=== PATIENT | male | born 1945 | race Caucasian/White ===

== ENCOUNTER 2019-08-06 19:28 | Emergency (ER) | payer MEDICARE, BC ==
[2019-08-06 19:40] VITALS: PULSE 70
[2019-08-06] MEDS ORDERED: Aspirin 81 MG Tab.Chew ONE (19:41)
[2019-08-06] MEDS ORDERED: Nitroglycerin 0.4 MG Tab.SL ONE (19:41)
[2019-08-06] MEDS ORDERED: Sodium Chloride 0.9% 10 ML Syringe FLUSH PRN (19:43)
[2019-08-06] MEDS ORDERED: Aspirin 81 MG Tab.Chew PO ONE (19:44)
[2019-08-06] MEDS ORDERED: Nitroglycerin 0.4 MG Tab.SL SL ONE ×3 (19:44→20:48)
--- NOTE | 2019-08-06 19:45 | EDM.PDOC ---
ED HPI GENERAL MEDICAL PROBLEM - General Chief Complaint: Chest Pain Stated Complaint: WEAK, CHEST, Time Seen by Provider: 08/06/19 19:35 Source of Information: Reports: Patient, RN, RN Notes Reviewed History Limitations: Reports: No Limitations - History of Present Illness INITIAL COMMENTS - FREE TEXT/NARRATIVE: patient to ER with complaint of chest pain and back pain. patient states pain is between the shoulder blades in the back and feels very similar to when he had stents last time. Patient states he has had stents twice, once 22 years ago and again 5 years ago. Patient states he has a history of stomach cancer, currently on chemotherapy. Admits to hypertension, high cholesterol. Patient states he is to have open heart surgery at some point, but that has not been scheduled. Patient states the open-heart surgery is to be done at [facility] due to his high risk and chemotherapy. patient states he was exerting himself today, drilling holes in the ice for ice fishing. patient states he came to [facility] playing in a pool league, and became very weak and having the pain. Onset: Today, Sudden Duration: Constant, Getting Worse, Heavy Chest Pain Score (Numeric/FACES): 5 - Related Data Allergies Allergy/AdvReac Type Severity Reaction Status Date / Time ticlopidine HCl [From Ticlid] Allergy Rash Verified 08/06/19 19:34 Home Meds: Home Meds Enalapril Maleate 10 mg PO DAILY 12/22/13 [History] metFORMIN [Glucophage] 1,000 mg PO BID 12/22/13 [History] Aspirin [Halfprin] 81 mg PO DAILY 02/28/15 [History] Cholecalciferol (Vitamin D3) [Vitamin D-3] 5,000 unit PO DAILY 02/28/15 [History ] Metoprolol Tartrate [Lopressor] 25 mg PO BID 02/28/15 [History] Multivitamin with Minerals [Multiple Vitamin] 1 tab PO DAILY 02/28/15 [History] Nitroglycerin [Nitrostat] 0.4 mg SL ASDIRECTED PRN 02/28/15 [History] atorvaSTATin Calcium [Atorvastatin Calcium] 80 mg PO BEDTIME 02/28/15 [History] Insulin Detemir [Levemir Flextouch] 100 unit SQ ACBREAKFAST 05/29/18 [History] Magnesium 250 mg PO DAILY 02/01/19 [History] SitaGLIPtin [Januvia] 100 mg PO DAILY 02/01/19 [History] Past Medical History Other HEENT History: 2nd bloody nose within 2 weeks that will not stop Other Hematologic History: on plavix and baby asa. gives blood regular for 44 years. states he was a "[employer]" and received blood from his father at Social & Family History - Living Situation & Occupation Living situation: Reports: , with Spouse Occupation: Employed ED ROS GENERAL - Review of Systems Review Of Systems: Comprehensive ROS is negative, except as noted in HPI. ED EXAM, GENERAL - Physical Exam Exam: See Below Exam Limited By: No Limitations General Appearance: Alert, WD/WN, Moderate Distress Eye Exam: Bilateral Eye: EOMI, Normal Inspection Ears: Normal External Exam, Hearing Grossly Normal Nose: Normal Inspection Throat/Mouth: Normal Inspection, Normal Voice, No Airway Compromise Head: Atraumatic, Normocephalic Neck: Normal Inspection, Supple, Non-Tender, Full Range of Motion Respiratory/Chest: No Respiratory Distress, Lungs Clear, Normal Breath Sounds, No Accessory Muscle Use, Chest Non-Tender Cardiovascular: Normal Peripheral Pulses, Regular Rate, Rhythm, No Edema, No Gallop, No JVD, No Murmur, No Rub Peripheral Pulses: 2+: Radial (L), Radial (R) GI/Abdominal: Normal Bowel Sounds, Soft, Non-Tender, No Distention (Male) Exam: Deferred Rectal (Males) Exam: Deferred Back Exam: Normal Inspection, Full Range of Motion, NT Extremities: Normal Inspection, Normal Range of Motion, Non-Tender, Normal Capillary Refill, No Pedal Edema Neurological: Alert, Oriented, CN II-XII Intact, Normal Cognition, Normal Gait, Normal Reflexes, No Motor/Sensory Deficits Psychiatric: Anxious Skin Exam: Warm, Dry, Intact, Normal Color, No Rash Lymphatic: No Adenopathy Course - Vital Signs Last Recorded V/S: Last Vital Signs Temp 97.2 F 08/06/19 19:35 Pulse 70 08/06/19 19:35 Resp 18 08/06/19 19:35 BP 145/87 H 08/06/19 19:50 Pulse Ox 100 08/06/19 19:35 - Orders/Labs/Meds Orders: Active Orders 24 hr Category Date Time Status EKG Documentation Completion [RC] STAT Care 08/06/19 19:43 Active EKG Documentation Completion [RC] STAT Care 08/06/19 23:30 Active Peripheral IV Care [RC] . DIRECTED Care 08/06/19 19:44 Active Chest 1V Frontal [CR] Stat Exams 08/06/19 19:43 Taken TROPONIN I [CHEM] Stat Lab 08/06/19 23:30 Ordered Sodium Chloride 0.9% [Saline Flush] Med 08/06/19 19:43 Active 10 ml FLUSH ASDIRECTED PRN Peripheral IV Insertion Adult [OM.PC] Stat Oth 08/06/19 19:43 Ordered Medication Orders Sodium Chloride (Saline Flush) 10 ml FLUSH ASDIRECTED PRN PRN Reason: Keep Vein Open Last Admin: 08/06/19 20:24 Dose: 10 ml Labs: Laboratory Tests 08/06/19 08/06/19 08/06/19 Range/Units 19:36 19:36 19:36 WBC 4.6 L (5.0-10.0) 10^3/uL RBC 2.76 L (4.6-6.2) 10^6/uL Hgb 10.3 L (14.0-18.0) g/dL Hct 30.5 L (40.0-54.0) % MCV 110.5 H (80-100) fL MCH 37.3 H (27.0-34.0) pg MCHC 33.8 (33.0-35.0) g/dL Plt Count 203 (150-450) 10^3/uL Neut % (Auto) 58.4 (42.2-75.2) % Lymph % (Auto) 32.5 (20.5-50.1) % [place] % (Auto) 8.3 H (2-8) % Eos % (Auto) 0.4 L (1.0-3.0) % Baso % (Auto) 0.4 (0.0-1.0) % PT 10.7 (9.0-12.0) SEC INR 1.0 (0.9-1.2) Sodium 132 L (135-145) mmol/L Potassium 3.4 L (3.6-5.0) mmol/L Chloride 99 L (101-111) mmol/L Carbon Dioxide 21.0 (21.0-31.0) mmol/L Anion Gap 15.4 BUN 16 (7-18) mg/dL Creatinine 0.9 (0.6-1.3) mg/dL Est Cr Clr Drug Dosing 67.32 mL/min Estimated GFR (MDRD) > 60 BUN/Creatinine Ratio 17.77 Glucose 192 H (74-105) mg/dL Calcium 8.8 (8.4-10.2) mg/dl Total Bilirubin 1.0 (0.2-1.0) mg/dL AST 25 (10-42) IU/L ALT 17 (10-60) IU/L Alkaline Phosphatase 63 (42-121) IU/L Troponin I < 0.02 (0.00-0.02) ng/ml B-Natriuretic Peptide 90 (0-100) pg/ml Total Protein 7.1 (6.7-8.2) g/dl Albumin 3.6 (3.2-5.5) g/dl Globulin 3.5 Albumin/Globulin Ratio 1.03 Meds: Medications Generic Name Dose Route Start Last Admin Trade Name Freq PRN Reason Stop Dose Admin Sodium Chloride 10 ml 08/06/19 19:43 08/06/19 20:24 Saline Flush FLUSH 10 ml ASDIRECTED PRN Administration Keep Vein Open Discontinued Medications Generic Name Dose Route Start Last Admin Trade Name Freq PRN Reason Stop Dose Admin Aspirin Confirm 08/06/19 19:41 08/06/19 20:00 Aspirin Administered 08/06/19 19:42 Not Given Dose 324 mg .ROUTE .STK-MED ONE Aspirin 324 mg 08/06/19 19:44 08/06/19 19:45 Aspirin PO 08/06/19 19:45 324 mg ONETIME ONE Administration Fentanyl 100 mcg 08/06/19 20:56 Sublimaze IVPUSH 08/06/19 20:57 ONETIME ONE Fentanyl 50 mcg 08/06/19 20:59 Sublimaze IVPUSH 08/06/19 21:00 ONETIME ONE Nitroglycerin Confirm 08/06/19 19:41 08/06/19 19:43 Nitrostat Administered 08/06/19 19:42 0.4 mg Dose Administration 0.4 mg .ROUTE .STK-MED ONE Nitroglycerin 0.4 mg 08/06/19 19:44 08/06/19 19:50 Nitrostat SL 08/06/19 19:45 0.4 mg Q5M ONE Administration Nitroglycerin 0.4 mg 08/06/19 19:45 Nitrostat SL 08/06/19 19:46 Q5M ONE Nitroglycerin 0.4 mg 08/06/19 20:48 Nitrostat SL 08/06/19 20:49 Q5M ONE - Radiology Interpretation Free Text/Narrative:: Chest xray: FINDINGS: Tubes, catheters and devices: A left infusion port is present. Lungs: The lungs are normal. Pleural space: There are no pleural effusions present. Heart/Mediastinum: The heart is not enlarged. The pulmonary arteries are not enlarged. Bones/joints: The spine, ribs, and pectoral girdles are normal. IMPRESSION: No acute abnormality. Thank you for allowing us to participate in the care of your patient. Dictated and Authenticated by: Aaron Coyle MD 08/06/2019 8:33 PM Central Time ([place] & [place]) See rad report Departure - Departure Time of Disposition: 21:18 Disposition: Home, Self-Care 01 Reason for Transfer *Q: Other Condition: Fair Clinical Impression: Chest pain Qualifiers: Chest pain type: chest pain due to myocardial ischemia Ischemic chest pain type : unspecified angina pectoris type Qualified Code(s): I25.9 - Chronic ischemic heart disease, unspecified Forms: ED Department Discharge, Interfacility Transfer [facility] Sepsis Event Note - Evaluation Sepsis Screening Result: No Definite Risk - Focused Exam Vital Signs: Vital Signs Temp Pulse Resp BP BP Pulse Ox 08/06/19 19:50 145/87 H 08/06/19 19:43 145/87 H 08/06/19 19:35 97.2 F 70 18 176/91 H 100 Date Exam was Performed: 08/06/19 Time Exam was Performed: 21:15 - My Orders Last 24 Hours: My Active Orders 08/06/19 19:43 EKG Documentation Completion [RC] STAT Chest 1V Frontal [CR] Stat Sodium Chloride 0.9% [Saline Flush] 10 ml FLUSH ASDIRECTED PRN Peripheral IV Insertion Adult [OM.PC] Stat 08/06/19 19:44 Peripheral IV Care [RC] . DIRECTED 08/06/19 23:30 EKG Documentation Completion [RC] STAT TROPONIN I [CHEM] Stat - Assessment/Plan Last 24 Hours: My Active Orders 08/06/19 19:43 EKG Documentation Completion [RC] STAT Chest 1V Frontal [CR] Stat Sodium Chloride 0.9% [Saline Flush] 10 ml FLUSH ASDIRECTED PRN Peripheral IV Insertion Adult [OM.PC] Stat 08/06/19 19:44 Peripheral IV Care [RC] . DIRECTED 08/06/19 23:30 EKG Documentation Completion [RC] STAT TROPONIN I [CHEM] Stat
[2019-08-06 20:02] LABS: ANION GAP 15.4; CHLORIDE,CL 99 mmol/L (101-111); SODIUM,NA 132 mmol/L (135-145)
[2019-08-06] MEDS ORDERED: fentaNYL 100 MCG/2 ML SDV IVPUSH ONE ×2 (20:56→20:59)
[2019-08-06 21:18] VITALS: BP 128/80
== END 2019-08-06 21:40 | disposition home or self-care (01) ==
LOC: DL.ED 19:28
DX: I25.9 Chronic ischemic heart disease, unspecified (principal); I10 Essential (primary) hypertension; C16.9 Malignant neoplasm of stomach, unspecified; Z88.8 Allergy status to other drugs, medicaments and biological substances; Z79.899 Other long term (current) drug therapy; Z79.82 Long term (current) use of aspirin; Z79.4 Long term (current) use of insulin
CPT/HCPCS: 36415; 71045; 80053; 83880; 84484; 85025; 85610; 93005; 96374; 99285; A9270; J3010

== ENCOUNTER 2021-01-09 16:37 | Emergency (ER) | payer MEDICARE, BC ==
--- NOTE | 2021-01-09 17:22 | EDM.PDOC ---
ED HPI GENERAL MEDICAL PROBLEM <Francesca Caldera - Last Filed: 01/16/21 05:53> - General Source of Information: Reports: Patient, EMS, EMS Notes Reviewed, RN, RN Notes Reviewed History Limitations: Reports: No Limitations Generalized Pain Score (Numeric/FACES): 4 <Ivania Mathews - Last Filed: 01/20/21 16:44> - General Chief Complaint: Syncope Stated Complaint: AMBULANCE Time Seen by Provider: 01/09/21 16:39 - History of Present Illness INITIAL COMMENTS - FREE TEXT/NARRATIVE: Vinny is a 75 y/o male who presents to the ED via [facility] with complaints of fall onto head. The patient reports this incident occurred about 45 minutes prior to his arrival at this facility when he tripped on a wet sidewalk and fell onto his face. The patient denies loss of consciousness, but notes he does take aspirin daily. He denies vision changes, headache, chest pain, palpitations, shortness of breath, or abdominal pain. He does report dizziness and pain to his left palm and bilateral knees. The patient reports current treatment for colon cancer; his last chemotherapy was three days ago, along with Fulphila, for which he receives every two weeks. (Ivania Mathews) - Related Data Allergies Allergy/AdvReac Type Severity Reaction Status Date / Time No Known Allergies Allergy Verified 01/09/21 17:31 Home Meds: Home Meds Enalapril Maleate 10 mg PO DAILY 12/22/13 [History] metFORMIN [Glucophage] 1,000 mg PO BID 12/22/13 [History] Aspirin [Halfprin] 81 mg PO DAILY 02/28/15 [History] Cholecalciferol (Vitamin D3) [Vitamin D-3] 5,000 unit PO DAILY 02/28/15 [History] Metoprolol Tartrate [Lopressor] 25 mg PO BID 02/28/15 [History] Multivitamin with Minerals [Multiple Vitamin] 1 tab PO DAILY 02/28/15 [History] Nitroglycerin [Nitrostat] 0.4 mg SL ASDIRECTED PRN 02/28/15 [History] atorvaSTATin Calcium [Atorvastatin Calcium] 80 mg PO BEDTIME 02/28/15 [History] Insulin Detemir [Levemir Flextouch] 100 unit SQ ACBREAKFAST 05/29/18 [History] Magnesium 500 mg PO DAILY 02/01/19 [History] SitaGLIPtin [Januvia] 100 mg PO DAILY 02/01/19 [History] Clopidogrel [Plavix] 75 mg PO DAILY 08/30/19 [History] Past Medical History Other HEENT History: 2nd bloody nose within 2 weeks that will not stop Cardiovascular History: Reports: CAD, Stents Respiratory History: Reports: None Gastrointestinal History: Reports: None Genitourinary History: Reports: None Musculoskeletal History: Reports: None, Fracture Other Musculoskeletal History: collar bone Neurological History: Reports: None Psychiatric History: Reports: None Endocrine/Metabolic History: Reports: Diabetes, Type II Hematologic History: Reports: None Other Hematologic History: on plavix and baby asa. gives blood regular for 44 years. states he was a "[employer]" and received blood from his father at Immunologic History: Reports: None Oncologic (Cancer) History: Reports: Colon, Other (See Below) Other Oncologic History: stomach cancer Dermatologic History: Reports: None - Infectious Disease History Infectious Disease History: Reports: Chicken Pox, Shingles - Past Surgical History Head Surgeries/Procedures: Reports: None Cardiovascular Surgical History: Reports: None Respiratory Surgical History: Reports: None GI Surgical History: Reports: None Male Surgical History: Reports: None Endocrine Surgical History: Reports: None Neurological Surgical History: Reports: None Musculoskeletal Surgical History: Reports: None Dermatological Surgical History: Reports: None <AngiKeturah madsenberyuki Vincent - Last Filed: 01/20/21 16:44> Social & Family History - Family History Family Medical History: No Pertinent Family History - Caffeine Use Caffeine Use: Reports: Soda - Living Situation & Occupation Living situation: Reports: , with Spouse Occupation: Employed <ReidIvania Melisa - Last Filed: 01/20/21 16:44> ED ROS GENERAL - Review of Systems Review Of Systems: Comprehensive ROS is negative, except as noted in HPI. <Francesca Caldera - Last Filed: 01/16/21 05:53> - Review of Systems Review Of Systems: Comprehensive ROS is negative, except as noted in HPI. <Ivania Mathews Melisa - Last Filed: 01/20/21 16:44> ED EXAM, HEAD INJURY - Physical Exam Exam: See Below Exam Limited By: No Limitations General Appearance: Alert, No Apparent Distress Head: Normocephalic, Facial Lacerations (To left eyebrow), Facial Tenderness. No: Howard's Sign, Facial Ecchymosis, Facial Swelling, Raccoon Eyes Nexus Criteria: No: Posterior, Midline Cervical Tenderness, Evidence of Intoxication, Altered Level of Consciousness, Focal Neurological Deficit, Painful Distraction Injuries Eyes: Bilateral Eye: EOMI, Normal Inspection, PERRL (3mm) Ears: Normal External Exam, Normal Canal, Hearing Grossly Normal, Normal TMs Nose: Normal Inspection, Normal Mucousa, No Blood Throat/Mouth: Normal Inspection (Dry mucous membranes), Normal Lips, Normal Teeth, Normal Gums, Normal Voice, No Airway Compromise. No: Normal Oropharynx (Dry mucous membranes) Neck: Non-Tender, Full Range of Motion, Normal Alignment, Normal Inspection. No: Tenderness, Tender Lateral, Tender Midline Respiratory: No Respiratory Distress, Lungs Clear, Normal Breath Sounds, No Accessory Muscle Use, Chest Non-Tender Cardiovascular: Normal Peripheral Pulses, Regular Rate, Rhythm, No Edema, No Gallop, No JVD, No Murmur, No Rub GI/Abdominal Exam: Normal Bowel Sounds, Soft, Non-Tender, No Distention, No Abnormal Bruit, No Mass, Pelvis Stable (Male) Exam: Deferred Rectal (Males) Exam: Deferred Back Exam: Normal Inspection, Full Range of Motion Extremities: Normal Range of Motion, Normal Capillary Refill, Arm Pain (3cm laceration to left anterior palm). No: Increased Warmth, Mottled, Pallor, Redness Neurologic: information assoc II-XII nml As Tested, No Motor/Sensory Deficits, Alert, Normal Mood/Affect, Oriented x 3 Skin: Normal Color, Warm/Dry, Other (Laceration to left eyebrown and left anterior palm) - Aroda Coma Score Best Eye Response (Aroda): (4) Open Spontaneously Best Verbal Response (Aroda): (5) Oriented Best Motor Response (Monika): (6) Obeys Commands <Ivania Mathews - Last Filed: 01/20/21 16:44> ED LACERATION/WOUND & CABRERA PROC - Laceration/Wound Repair Left Anterior Hand Lac/wound length in cm: 3 Appearance: Subcutaneous, Linear, Clean Distal NVT: Neuro & Vascular Intact, No Tendon Injury Anesthetic Type: Local Local Anesthesia - Lidocaine (Xylocaine): 1% Plain Local Anesthetic Volume: 3cc Skin Prep: Chlorhexidine (Hibiciens), Sterile Drape Exploration/Debridement/Repair: Wound Explored, In a Bloodless Field, Explored to Base, No Foreign Material Found, Wound Margins Revised Closed with: Sutures Suture Size: 4-0 # of Sutures: 7 Suture Type: Prolene, Interrupted, Simple Drain Placement: No Sterile Dressing Applied: Nurse Tetanus Status Addressed: Yes Complications: No Left Upper Anterior Medial Brow Lac/wound length in cm: 2.5 Appearance: Subcutaneous, Linear, Clean Distal NVT: Neuro & Vascular Intact, No Tendon Injury Anesthetic Type: Local Local Anesthesia - Lidocaine (Xylocaine): 1% Plain Local Anesthetic Volume: 5cc Skin Prep: Chlorhexidine (Hibiciens), Saline, Sterile Drape Exploration/Debridement/Repair: Wound Explored, In a Bloodless Field, Explored to Base, No Foreign Material Found, Wound Margins Revised Closed with: Sutures Suture Size: 4-0 # of Sutures: 5 Suture Type: Prolene, Interrupted, Simple Drain Placement: No Sterile Dressing Applied: Nurse Tetanus Status Addressed: Yes Complications: No <ReidIvania Melisa - Last Filed: 01/20/21 16:44> #1 Interpretation EKG Date: 01/09/21 Time: 05:01 Rhythm: NSR Rate (Beats/Min): 68 [place]: Normal P-Wave: Present QRS: Normal ST-T: Normal QT: Normal NV/PQ Interval: 0.18 Comparison: No Change <ReidIvaniaelena Vincent - Last Filed: 01/20/21 16:44> #1 Interpretation EKG Interpretation Comments: NSR; old q-waves in II, III, and aVF; No evidence of acute myocardia ischemia (Ivania Mathews) Course <ReidIvania Melisa - Last Filed: 01/20/21 16:44> - Vital Signs Last Recorded V/S: Last Vital Signs Temp 96.3 F L 01/09/21 16:40 Pulse 66 01/09/21 16:40 Resp 18 01/09/21 16:40 BP 146/94 H 01/09/21 16:40 Pulse Ox 99 01/09/21 16:40 Orthostatic Blood Pressure [ 90/59 Standing] Orthostatic Blood Pressure [ 116/56 Sitting] Orthostatic Blood Pressure [ 146/94 Supine] - Orders/Labs/Meds Labs: Laboratory Tests 01/09/21 01/09/21 01/09/21 Range/Units 16:58 16:58 16:58 WBC 54.1 H* (5.0-10.0) 10^3/uL RBC 3.22 L (4.6-6.2) 10^6/uL Hgb 11.1 L (14.0-18.0) g/dL Hct 35.5 L (40.0-54.0) % MCV 110.2 H (80-100) fL MCH 34.5 H (27.0-34.0) pg MCHC 31.3 L (33.0-35.0) g/dL Plt Count 210 (150-450) 10^3/uL Neut % (Auto) 96.3 H (42.2-75.2) % Lymph % (Auto) 2.9 L (20.5-50.1) % [place] % (Auto) 0.7 L (2-8) % Eos % (Auto) 0.0 L (1.0-3.0) % Baso % (Auto) 0.1 (0.0-1.0) % Add Manual Diff Yes Neutrophils % (Manual) 76 H (42-75) % Band Neutrophils % 15 % Lymphocytes % (Manual) 8 L (20-50) % Monocytes % (Manual) 1 L (2-8) % Macrocytosis 3+ marked PT 10.6 (9.0-12.0) SEC INR 1.1 (0.9-1.2) APTT 20.0 L (22.0-34.0) SEC Sodium 142 (136-145) mmol/L Potassium 4.3 (3.5-5.1) mmol/L Chloride 104 (98-107) mmol/L Carbon Dioxide 24 (21-32) mmol/L Anion Gap 18.3 H (7-13) mEq/L BUN 26 H (7-18) mg/dL Creatinine 1.19 (0.70-1.30) mg/dL Est Cr Clr Drug Dosing TNP Estimated GFR (MDRD) 59 BUN/Creatinine Ratio 21.8 (No establ ref range) Glucose 153 H (70-99) mg/dL Lactic Acid (0.4-2.0) mmol/L Calcium 8.6 (8.5-10.1) mg/dL Magnesium 1.8 (1.8-2.4) mg/dL Total Bilirubin 0.7 (0.2-1.0) mg/dL AST 21 (15-37) U/L ALT 32 (16-63) U/L Alkaline Phosphatase 174 H (46-116) U/L Troponin I High Sens 14 (<=76) pg/mL C-Reactive Protein < 0.2 (0.0-0.9) mg/dL B-Natriuretic Peptide 186 H (0-100) pg/ml Total Protein 6.3 L (6.4-8.2) g/dL Albumin 3.2 L (3.4-5.0) g/dL Globulin 3.1 Albumin/Globulin Ratio 1.03 Ethyl Alcohol < 3 (0) mg/dL 01/09/ Range/Units 16:58 WBC (5.0-10.0) 10^3/uL RBC (4.6-6.2) 10^6/uL Hgb (14.0-18.0) g/dL Hct (40.0-54.0) % MCV (80-100) fL MCH (27.0-34.0) pg MCHC (33.0-35.0) g/dL Plt Count (150-450) 10^3/uL Neut % (Auto) (42.2-75.2) % Lymph % (Auto) (20.5-50.1) % [place] % (Auto) (2-8) % Eos % (Auto) (1.0-3.0) % Baso % (Auto) (0.0-1.0) % Add Manual Diff Neutrophils % (Manual) (42-75) % Band Neutrophils % % Lymphocytes % (Manual) (20-50) % Monocytes % (Manual) (2-8) % Macrocytosis PT (9.0-12.0) SEC INR (0.9-1.2) APTT (22.0-34.0) SEC Sodium (136-145) mmol/L Potassium (3.5-5.1) mmol/L Chloride (98-107) mmol/L Carbon Dioxide (21-32) mmol/L Anion Gap (7-13) mEq/L BUN (7-18) mg/dL Creatinine (0.70-1.30) mg/dL Est Cr Clr Drug Dosing Estimated GFR (MDRD) BUN/Creatinine Ratio (No establ ref range) Glucose (70-99) mg/dL Lactic Acid 4.1 H* (0.4-2.0) mmol/L Calcium (8.5-10.1) mg/dL Magnesium (1.8-2.4) mg/dL Total Bilirubin (0.2-1.0) mg/dL AST (15-37) U/L ALT (16-63) U/L Alkaline Phosphatase (46-116) U/L Troponin I High Sens (<=76) pg/mL C-Reactive Protein (0.0-0.9) mg/dL B-Natriuretic Peptide (0-100) pg/ml Total Protein (6.4-8.2) g/dL Albumin (3.4-5.0) g/dL Globulin Albumin/Globulin Ratio Ethyl Alcohol (0) mg/dL Meds: Medications Discontinued Medications Generic Name Dose Route Start Last Admin Trade Name Freq PRN Reason Stop Dose Admin Bacitracin 1 dose 01/09/21 19:10 01/09/21 19:27 Bacitracin Oint 1 Gm U/D Packet TOP 01/09/21 19:11 1 dose ONETIME ONE Administration Sodium Chloride 500 mls @ 999 mls/hr 01/09/21 18:48 01/09/21 19:02 Normal Saline IV 01/09/21 19:18 999 mls/hr .BOLUS ONE Administration Lidocaine HCl 30 ml 01/09/21 17:45 01/09/21 17:51 Lidocaine 1% 30 Ml Sdv INJECT 01/09/21 17:46 30 ml ONETIME ONE Administration - Radiology Interpretation Free Text/Narrative:: [facility] Final Radiology Report Call: [phone] assistance Online chat: [email or web address] Name: VINNY DYSON Age: 75Years M Date: 01/09/2021 SSN: -- : [id number] Study: CT HEAD WO CONT Requesting Physician: Ivania Mathews Images: 178 Addl Studies: Provided Clinical History: Fall off of sidewalk onto face; Blood thinners Contrast: Without Contrast Medium: Contrast Amount: Contrast Method: Page 1 of 2 PROCEDURE INFORMATION: Exam: CT Head Without Contrast Exam date and time: 01/09/2021 5:11 PM Age: 75 years old Clinical indication: Other: Fall; Additional info: Fall off of sidewalk onto face; Blood thinners TECHNIQUE: Imaging protocol: Computed tomography of the head without contrast. Radiation optimization: All CT scans at this facility use at least one of these dose optimization techniques: automated exposure control; mA and/or kV adjustment per patient size (includes targeted exams where dose is matched to clinical indication); or iterative reconstruction. COMPARISON: No relevant prior studies available. FINDINGS: Brain: Moderate generalized cortical atrophy. No hemorrhage. Mild the chronic white matter micro ischemic change. No mass effect. Cerebral ventricles: No ventriculomegaly. Paranasal sinuses: Mucoperiosteal thickening observed in the right maxillary sinus. In No fluid levels. Mastoid air cells: Visualized mastoid air cells are well aerated. Bones/joints: Unremarkable. No acute fracture. Soft tissues: Unremarkable. IMPRESSION: No acute intracranial abnormality. Thank you for allowing us to participate in the care of your patient. Dictated and Authenticated by: Aleks Hart MD 01/09/2021 5:33 PM Central Time ([place] & [place]) (Ivania Mathews) - Re-Assessments/Exams Free Text/Narrative Re-Assessment/Exam: 01/09/21 Laceration to left eyebrow and left palm sutured without complication. Patient verbalized TDap vaccine in the past 10 years. Care of patient transferred to [facility] at 1900. (Ivania Mathews) Departure - Departure Time of Disposition: 19:38 <Francesca Caldera - Last Filed: 01/16/21 05:53> - Departure Condition: Good - Discharge Information *PRESCRIPTION DRUG MONITORING PROGRAM REVIEWED*: Not Applicable *COPY OF PRESCRIPTION DRUG MONITORING REPORT IN PATIENT RAGHAV: Not Applicable <Ivania Mathews - Last Filed: 01/20/21 16:44> - Departure Disposition: Home, Self-Care 01 Clinical Impression: Elevated lactic acid level, History of colon cancer, Fall from ground level, Effect of chemotherapy Head trauma Qualifiers: Encounter type: initial encounter Qualified Code(s): S09.90XA - Unspecified injury of head, initial encounter Laceration of left eyebrow Qualifiers: Encounter type: initial encounter Qualified Code(s): S01.112A - Laceration without foreign body of left eyelid and periocular area, initial encounter Laceration of left palm without complication Qualifiers: Encounter type: initial encounter Qualified Code(s): S61.412A - Laceration without foreign body of left hand, initial encounter Elevated white blood cell count Qualifiers: Leukocytosis type: other Qualified Code(s): D72.828 - Other elevated white blood cell count - Discharge Information Instructions: Facial Laceration, [id number] Referrals: PCP,None [Primary Care Provider] - Forms: ED Department Discharge Additional Instructions: 1.) Follow up with primary care provider in 5-7 days for suture removal. 2.) Continue with current medication regimen. 3.) Drink plenty of water to stay hydrated. 4.) Follow up with primary care provider, or return to the emergency department, with any vision changes, projectile vomiting, decrease in mental status, seizure-like activity, shortness of breath, or chest palpitations.
[2021-01-09 17:27] LABS: ANION GAP 18.3 mEq/L (7-13); CHLORIDE,CL 104 mmol/L (98-107); SODIUM,NA 142 mmol/L (136-145)
--- NOTE | 2021-01-09 17:34 | CT ---
PROCEDURE INFORMATION: Exam: CT Head Without Contrast Exam date and time: 01/09/2021 5:11 PM Age: 75 years old Clinical indication: Other: Fall; Additional info: Fall off of sidewalk onto face; Blood thinners TECHNIQUE: Imaging protocol: Computed tomography of the head without contrast. Radiation optimization: All CT scans at this facility use at least one of these dose optimization techniques: automated exposure control; mA and/or kV adjustment per patient size (includes targeted exams where dose is matched to clinical indication); or iterative reconstruction. COMPARISON: No relevant prior studies available. FINDINGS: Brain: Moderate generalized cortical atrophy. No hemorrhage. Mild the chronic white matter micro ischemic change. No mass effect. Cerebral ventricles: No ventriculomegaly. Paranasal sinuses: Mucoperiosteal thickening observed in the right maxillary sinus. In No fluid levels. Mastoid air cells: Visualized mastoid air cells are well aerated. Bones/joints: Unremarkable. No acute fracture. Soft tissues: Unremarkable. IMPRESSION: No acute intracranial abnormality.
[2021-01-09 17:38] VITALS: BP 146/94; PULSE 66
[2021-01-09] MEDS ORDERED: Lidocaine 1% 30 ML SDV INJECT ONE (17:45)
[2021-01-09] MEDS ORDERED: Sodium Chloride 0.9% 500 ML IV ONE (18:48)
[2021-01-09] MEDS ORDERED: Bacitracin Oint 1 GM U/D Packet TOP ONE (19:10)
== END 2021-01-09 19:45 | disposition home or self-care (01) ==
LOC: DL.ED 16:37
DX: S01.112A Laceration without foreign body of left eyelid and periocular area, initial encounter (principal); S61.412A Laceration without foreign body of left hand, initial encounter; T45.1X5A Adverse effect of antineoplastic and immunosuppressive drugs, initial encounter; R74.02 Elevation of levels of lactic acid dehydrogenase [LDH]; D72.828 Other elevated white blood cell count; I25.10 Atherosclerotic heart disease of native coronary artery without angina pectoris; E11.9 Type 2 diabetes mellitus without complications; Z95.5 Presence of coronary angioplasty implant and graft; Z79.82 Long term (current) use of aspirin; Z79.02 Long term (current) use of antithrombotics/antiplatelets; Z79.4 Long term (current) use of insulin; Z79.899 Other long term (current) drug therapy; W18.39XA Other fall on same level, initial encounter; W26.8XXA Contact with other sharp object(s), not elsewhere classified, initial encounter
CPT/HCPCS: 12002; 12011; 36415; 70450; 80053; 80307; 83605; 83735; 83880; 84484; 85025; 85610; 85730; 86140; 93005; 93010; 99284; 99284-25; J7030